=== PATIENT | male | born 1990 | race Caucasian/White ===

== ENCOUNTER 2020-08-25 20:39 | Emergency (ER) | payer BC, SELFPAY ==
--- NOTE | ~2020-08-25 | CT_ITS ---
EXAMINATION: CT ABDOMEN AND PELVIS WITH CONTRAST CLINICAL INFORMATION: Weight loss, diarrhea, mild abdominal discomfort COMPARISON: None TECHNIQUE: Multidetector volumetric images were obtained from the superior aspect of the liver through the pubic symphysis following administration 85 mL of Omnipaque 350 intravenous contrast. Sagittal and coronal reformatted images were obtained on the technologist's workstation. Oral contrast: No This CT examination was performed using dose optimization techniques as appropriate, variously including the following: *Automated exposure control *Adjustment of mA and/or kV according to patient size (this includes techniques or standardized protocols for targeted exams where dose is matched to indication/reason for exam; i.e. extremities or head) *Use of iterative reconstruction technique DLP: 742 mGy-cm FINDINGS: LUNG BASES: The visualized lung bases are unremarkable. LIVER, GALLBLADDER, AND BILIARY TREE: The liver is normal in size, shape, and attenuation. No focal hepatic lesion or biliary ductal dilatation is present. The gallbladder is unremarkable with no evidence of radiopaque gallstones, gallbladder wall thickening, or obvious pericholecystic inflammatory changes. PANCREAS: Unremarkable. SPLEEN: Unremarkable. ADRENAL GLANDS: Unremarkable. KIDNEYS AND URETERS: The kidneys are normal in size, shape, and attenuation. No hydronephrosis, hydroureter, or obstructing calculi seen. No perinephric stranding. BLADDER: Unremarkable. GASTROINTESTINAL TRACT: The small and large bowel are unremarkable. The appendix is unremarkable. No free fluid or free air is seen. ABDOMINAL WALL: No significant hernia is appreciated. LYMPH NODES: Normal. VASCULAR: Unremarkable. PELVIC VISCERA: Unremarkable. OSSEOUS STRUCTURES: Unremarkable. CT/CT abdomen pelvis w con IMPRESSION: No acute findings identified in the abdomen/pelvis.
[2020-08-25 20:58] VITALS: BP 126/81; PULSE 109; RESP 18; TEMP 37.3; O2SAT 97; BMI 27.6
--- NOTE | 2020-08-25 22:08 | ED.GENADULT ---
HPI - General Adult General Chief complaint: Upper Respiratory Symptoms Stated complaint: Viral symptoms Time Seen by Provider: 08/25/20 21:36 Source: patient Mode of arrival: ambulatory History of Present Illness HPI narrative: This is a 30-year-old male with past medical history of anxiety, hypertension presents with developing fever, T-max-101.6, accompanied by leg cramping and then the development of painful/red/warm ?bumps? to bilateral anterior aspect of his lower extremities and states that he now has a couple developing on his bilateral arms. Additional information provided by patient states that over the past 2 months he has noted an increase loss of weight ?without really trying that much? as well as changes in his stooling patterns but denies any blood in the stool. He states the stool has become ?looser and more frequent?. He denies any family history of IBD or colon CA. Of note, patient has received his 2 doses of Motrin a COVID-19 vaccine with the latter having been administered approximately 1 week ago. He states that since that time his appetite has been decreased and although he did not feel well 24 hours after he has improved since that time but states he has continued with a scratchy throat and feeling a decrease in appetite. In addition, he states his lisinopril was increased 2 weeks ago from 10 mg to 20 mg. Related Data Allergies Allergy/AdvReac Type Severity Reaction Status Date / Time No Known Allergies Allergy Unverified 03/12/20 19:01 [No Known Allergies*] Review of Systems Review of Systems: Pertinent positives and negatives as stated in HPI and 10 point review of systems is otherwise negative. [facility] Past Medical History Source: nursing notes reviewed Medical History Anxiety Asthma HTN (hypertension) Social History Social History Alcohol intake: current Alcohol intake frequency: a few times a week Alcohol type: beer Smoking Status: Light tobacco smoker Smoked in Last 30 Days: No Use of substances other than those prescribed or required for medical reasons: No Advance Directives: No Advance Directives Information Provided: No Physical Exam Vital Signs: Vital Signs: Last Vital Signs Temp 98.8 F 08/25/20 22:27 Pulse 74 08/26/20 00:51 Resp 20 08/26/20 00:51 BP 122/77 03/03/21 00:51 Pulse Ox 99 08/26/20 00:51 Body Mass Index 27.6 VITAL SIGNS: Reviewed. GENERAL: Well developed, well nourished, in no acute distress. HEAD: Normocephalic/atraumatic, EYES: PERRLA, EOMI EARS: Ext canals without abnormality, TMs non-bulging and non-erythematous NOSE: Nares patent bilateral OROPHARYNX: no oral lesions noted, posterior pharynx clear and non-erythematous without noted tonsillar enlargement/erythema/exudates NECK: Supple, no adenopathy LUNGS: Normal breath sounds. No adventitious sounds or accessory muscle use. SpO2<97> CARDIOVASCULAR: Regular rate and rhythm without noted murmurs ABDOMEN: Soft, non-tender, non-distended with bowel sounds. MUSCULOSKELETAL: No tenderness, deformities, or effusions noted on gross inspection. EXTREMITIES: Bilateral lower extremities exhibit red/painful on palpation/swellings at the anterior aspect and there are smaller inversions of this on bilateral upper extremities but none appreciated on trunk or abdomen SKIN: See above NEUROLOGIC: Alert and oriented x 4. Strength and sensation to light touch were grossly intact x 4. Course Course Course Narrative: This is a 30-year-old male with history and clinical presentation concerning for erythema nodosum versus pyoderma gangrenosum. As patient has had some vague GI symptoms over the past 2 months this is mildly concerning for possible IBD etiology, however cannot rule out possible reaction to Moderna vaccine. Review of all investigations is negative for any acute findings other than elevated eosinophils in conjunction with CRP-2.65 with an ESR that is normal. No protein is noted in the urine, COVID-19 testing is negative, and CT scan is negative for any acute findings. Were discussed with him at bedside and he was strongly encouraged to continue with his follow-up with Gastroenterology for further evaluation. Medical Decision Making Lab Data Result diagrams: 08/25/20 22:13 08/25/20 22:13 Labs: Lab Results 08/25/20 08/25/20 08/25/20 Range/Units 22:08 22:13 22:13 WBC 5.8 (4.8-10.8) X10*3/uL RBC 4.78 (4.60-5.80) X10*6/uL Hgb 14.4 (14.0-18.0) g/dl Hct 41.4 L (42-52) % MCV 86.6 (80-98) fL MCH 30.1 (27.0-33.0) pg MCHC 34.8 (31.0-36.0) g/dl RDW 11.7 (11.0-16.0) % Plt Count 219 (160-400) X10*3/uL MPV 9.6 (9.4-12.4) fL Immature Gran % (Auto) 0.3 (0.0-0.4) % Neut % (Auto) 60.0 (45-73) % Lymph % (Auto) 20.5 (20-40) % [place] % (Auto) 12.1 H (2-11) % Eos % (Auto) 6.4 H (0-4) % Baso % (Auto) 0.7 (0-2) % Lymph # (Auto) 1.2 (1.2-4.9) X10*3/uL [place] # (Auto) 0.7 (0.1-1.2) X10*3/uL Eos # (Auto) 0.4 (0.0-0.4) X10*3/uL Baso # (Auto) 0.0 (0.0-0.2) X10*3/uL Abs Immat Gran (auto) 0.02 (0.00-0.03) X10*3/uL Absolute Neuts (auto) 3.5 (2.0-8.3) X10*3/uL Absolute Nucleated RBC 0.000 (0.0-0.012) X10*3/uL Nucleated RBC % (auto) 0.0 (0.0-0.2) /100WBC ESR 7 (0-15) MM/HR Sodium (135-145) mmol/L Potassium (3.3-5.1) mmol/L Chloride (96-108) mmol/L Carbon Dioxide (22-29) mmol/L Anion Gap (12-20) BUN (9-16) mg/dL Creatinine (0.5-1.4) mg/dL Estim Creat Clear Calc Estimated GFR Random Glucose (60-115) mg/dL Calcium (8.4-10.2) mg/dL Total Bilirubin (0.0-1.0) mg/dL AST (5-37) U/L ALT (0-40) U/L Alkaline Phosphatase (39-117) U/L C-Reactive Protein (< or = 0.50) mg/dL Total Protein (6.5-8.0) g/dL Albumin (3.5-5.0) g/dL Urine Color Urine Appearance Urine pH (5.0-8.0) Ur Specific [place] (1.005-1.025) Urine Protein (NEG-TRACE) MG/DL Urine Glucose (UA) (NEG) MG/DL Urine Ketones (NEG) MG/DL Urine Blood (NEG) Urine Nitrite (NEG) Ur Leukocyte Esterase (NEG) Coronavirus (PCR) NEGATIVE (Negative) Influenza Type A (PCR) NEGATIVE (Negative) Influenza Type B (PCR) NEGATIVE (Negative) RSV RNA Qual (PCR) NEGATIVE (Negative) 08/25/20 08/26/20 Range/Units 22:13 00:53 WBC (4.8-10.8) X10*3/uL RBC (4.60-5.80) X10*6/uL Hgb (14.0-18.0) g/dl Hct (42-52) % MCV (80-98) fL MCH (27.0-33.0) pg MCHC (31.0-36.0) g/dl RDW (11.0-16.0) % Plt Count (160-400) X10*3/uL MPV (9.4-12.4) fL Immature Gran % (Auto) (0.0-0.4) % Neut % (Auto) (45-73) % Lymph % (Auto) (20-40) % [place] % (Auto) (2-11) % Eos % (Auto) (0-4) % Baso % (Auto) (0-2) % Lymph # (Auto) (1.2-4.9) X10*3/uL [place] # (Auto) (0.1-1.2) X10*3/uL Eos # (Auto) (0.0-0.4) X10*3/uL Baso # (Auto) (0.0-0.2) X10*3/uL Abs Immat Gran (auto) (0.00-0.03) X10*3/uL Absolute Neuts (auto) (2.0-8.3) X10*3/uL Absolute Nucleated RBC (0.0-0.012) X10*3/uL Nucleated RBC % (auto) (0.0-0.2) /100WBC ESR (0-15) MM/HR Sodium 138 (135-145) mmol/L Potassium 3.6 (3.3-5.1) mmol/L Chloride 103 (96-108) mmol/L Carbon Dioxide 27 (22-29) mmol/L Anion Gap 12 (12-20) BUN 10 (9-16) mg/dL Creatinine 1.03 (0.5-1.4) mg/dL Estim Creat Clear Calc 106.7 Estimated GFR > 60 Random Glucose 100 (60-115) mg/dL Calcium 8.8 (8.4-10.2) mg/dL Total Bilirubin 0.8 (0.0-1.0) mg/dL AST 16 (5-37) U/L ALT 14 (0-40) U/L Alkaline Phosphatase 42 (39-117) U/L C-Reactive Protein 2.65 H (< or = 0.50) mg/dL Total Protein 6.7 (6.5-8.0) g/dL Albumin 4.3 (3.5-5.0) g/dL Urine Color YELLOW Urine Appearance CLEAR Urine pH 6.5 (5.0-8.0) Ur Specific [place] <= 1.005 (1.005-1.025) Urine Protein NEG (NEG-TRACE) MG/DL Urine Glucose (UA) NEG (NEG) MG/DL Urine Ketones NEG (NEG) MG/DL Urine Blood NEG (NEG) Urine Nitrite NEG (NEG) Ur Leukocyte Esterase NEG (NEG) Coronavirus (PCR) (Negative) Influenza Type A (PCR) (Negative) Influenza Type B (PCR) (Negative) RSV RNA Qual (PCR) (Negative) Discharge Plan Discharge Clinical Impression: Erythema nodosum, CRP elevated Patient Disposition: Home, Self-Care Additional Instructions: 1. Resume all home medications as prescribed. 2. Tylenol 1000 mg, orally, every 6 hours as needed for pain control or temperatures greater than 100.4. Please to not exceed 4000 mg within 24 hours. 3. Ibuprofen 400 mg, orally with milk or food, every 6 hours as needed for pain control or temperatures greater than 100.4. 4. Increase fluid hydration specially with water. 5. Continue with your scheduled appointment with Gastroenterology and ensure that they request records from this visit. Do not hesitate to return to this emergency department should you experience any acute worsening of your symptoms. Referrals: Physician,Unknown [Primary Care Provider] - 2 days
[2020-08-25 22:27] VITALS: BP 120/72; PULSE 86; PULSE 88; RESP 14; TEMP 37.1; O2SAT 95
[2020-08-25 22:29] LABS: MANUAL DIFF FLAG NO
[2020-08-25 22:32] LABS: Basophils Percent Auto 0.7 % (0-2); Eosinophils Absolute Auto 0.4 X10*3/uL (0.0-0.4); Eosinophils Percent Auto 6.4 % (0-4); Hematocrit 41.4 % (42-52); Hemoglobin 14.4 g/dl (14.0-18.0); Imm Gran Abs Auto 0.02 X10*3/uL (0.00-0.03); Imm Gran Pct Auto 0.3 % (0.0-0.4); Lymphocytes Absolute Auto 1.2 X10*3/uL (1.2-4.9); Lymphocytes Percent Auto 20.5 % (20-40); Mean Corpuscular HGB Conc 34.8 g/dl (31.0-36.0); Mean Corpuscular Hemoglobin 30.1 pg (27.0-33.0); Mean Corpuscular Volume 86.6 fL (80-98); Mean Platelet Volume 9.6 fL (9.4-12.4); Monocytes Absolute Auto 0.7 X10*3/uL (0.1-1.2); Monocytes Percent Auto 12.1 % (2-11); Neutrophils Absolute Auto 3.5 X10*3/uL (2.0-8.3); Platelet Count 219 X10*3/uL (160-400); Red Blood Count 4.78 X10*6/uL (4.60-5.80); Red Cell Distribution Width 11.7 % (11.0-16.0); White Blood Count 5.8 X10*3/uL (4.8-10.8)
[2020-08-25 22:53] LABS: Alanine Aminotransferase 14 U/L (0-40); Albumin Level 4.3 g/dL (3.5-5.0); Alkaline Phosphatase 42 U/L (39-117); Anion Gap 12 (12-20); Aspartate Amino Transferase 16 U/L (5-37); Bilirubin Total 0.8 mg/dL (0.0-1.0); Blood Urea Nitrogen 10 mg/dL (9-16); C Reactive Protein 2.65 mg/dL (< or = 0.50); Calcium 8.8 mg/dL (8.4-10.2); Carbon Dioxide 27 mmol/L (22-29); Chloride 103 mmol/L (96-108); Creatinine Clr Calc Pharmacy 106.7; Estimated Glomerular Filt Rate > 60; Glucose Random 100 mg/dL (60-115); Potassium 3.6 mmol/L (3.3-5.1); Sodium 138 mmol/L (135-145); Total Protein 6.7 g/dL (6.5-8.0)
[2020-08-25 22:58] LABS: Influenza A PCR NEGATIVE (Negative); Influenza B PCR NEGATIVE (Negative); Resp Syncy Virus RNA Qual PCR NEGATIVE (Negative); SARS COV2 PCR INHOUSE NEGATIVE (Negative)
[2020-08-25 23:27] LABS: Erythrocyte Sedimentation Rate 7 MM/HR (0-15)
[2020-08-26] MEDS: iohexoL 350 MG/ML 100 ML INFUS..BTL 85 ML IV (00:35)
[2020-08-26 00:51] VITALS: BP 122/77; PULSE 74; RESP 20; O2SAT 99
[2020-08-26 00:59] LABS: Glucose Urine UA NEG (NEG); Leukocyte Esterase Urine NEG (NEG); Nitrite Urine NEG (NEG); PH 6.5 (5.0-8.0); Specific Gravity - Urine <= 1.005 (1.005-1.025); Urine Blood NEG (NEG); Urine Ketones NEG (NEG); Urine Protein NEG (NEG-TRACE)
[2020-08-26 01:00] LABS: Appearance Urine CLEAR; Color Urine YELLOW; UACC Culture Trigger NO
[2020-08-26] MEDS: Acetaminophen 325 MG TABLET 975 MG PO (01:38)
[2020-08-26] MEDS: Ketorolac Tromethamine 15 MG/ML VIAL IVPUSH (01:39)
== END 2020-08-26 01:47 | disposition home or self-care (01) ==
PROVIDERS: Emergency Provider Student in an Organized Health Care Education/Training Program
DX: L52 Erythema nodosum (principal); R79.82 Elevated C-reactive protein (CRP); B34.9 Viral infection, unspecified; R50.9 Fever, unspecified; Z20.822 Contact with and (suspected) exposure to COVID-19; I10 Essential (primary) hypertension; F41.9 Anxiety disorder, unspecified; J45.909 Unspecified asthma, uncomplicated; F17.210 Nicotine dependence, cigarettes, uncomplicated
CPT/HCPCS: 0241U; 36415; 74177; 80053; 81003; 85025; 85652; 86140; 96374; 99284; J1885; Q9967